=== PATIENT | male | born 1945 | race Two or more races ===

== ENCOUNTER 2019-08-04 07:40 | Emergency (ER) | payer OTHER, MEDICAID ==
[~2019-08-04] VITALS: Ht 182.9 cm; Wt 81.6 kg
[2019-08-04 09:42] VITALS: BP 154/70
== END 2019-08-04 14:49 | disposition home or self-care (01) ==
LOC: EDBD 07:40 → ER 07:44
DX: S50.12XA Contusion of left forearm, initial encounter (principal); S50.11XA Contusion of right forearm, initial encounter; E11.9 Type 2 diabetes mellitus without complications; V43.52XA Car driver injured in collision with other type car in traffic accident, initial encounter; Y93.89 Activity, other specified; Y92.410 Unspecified street and highway as the place of occurrence of the external cause; Y99.8 Other external cause status
CPT/HCPCS: 73090; 82962